=== PATIENT | male | born 2000 | race African-American/Black ===

== ENCOUNTER 2025-06-10 22:28 | Observation (INO) ==
[2025-06-10] MEDS: HYDROmorphone INJ 1 MG/ML SYRINGE IV STA (23:10)
[2025-06-10] MEDS: ONDANSETRON INJ 2 MG/ML 2 ML VIAL IV STA (23:10)
[2025-06-10 23:16] LABS: Hematocrit (blood only) 38.7 % (42.0-52.0); Hemoglobin 13.0 g/dL (14.0-18.0); Immature Granulocytes # (auto) 0.01 K/uL (0.01-0.20); Immature Granulocytes % (auto) 0.2 %; Mean Corpuscular Hemoglobin 31.0 pg (25.0-34.0); Mean Corpuscular Volume 92.4 fL (80.0-100.0); Platelet Count 199 K/uL (130-400); RDW Standard Deviation 39.8 fL (36.4-46.3); Red Blood Count 4.19 M/uL (4.70-6.10); White Blood Count 6.55 K/ul (4.8-10.8)
[2025-06-10 23:24] LABS: Alanine Aminotransferase 37.0 U/L (7-52); Albumin Globulin Ratio 1.0 (0.9-2); Albumin Level 3.8 gm/dl (3.4-5.0); Alkaline Phosphatase 78.0 U/L (34-104); Anion Gap 6.0 (3-11); Bilirubin,Total 0.5 mg/dl (0.2-1.0); Blood Urea Nitrogen 16.0 mg/dl (6-23); Calcium 9.0 mg/dl (8.6-10.3); Carbon Dioxide 28.0 mmol/L (21-32); Chloride 102.0 mmol/L (98-107); Creatinine Clr Calc Pharmacy 119.0 ml/min; Globulin 4.0 gm/dl (2.5-4.0); Glucose 134.0 mg/dl (70-99(Fasting)); Lipase 39.0 U/L (11-82); Potassium 3.7 mmol/L (3.5-5.1); Sodium 136.0 mmol/L (136-145); Total Protein 7.8 gm/dl (6.0-8.3)
[2025-06-10] MEDS: OPTIRAY 320 125ml IV ONE (23:45)
[2025-06-11] MEDS: HYDROmorphone INJ 1 MG/ML SYRINGE IV STA (00:07)
--- NOTE | 2025-06-11 01:45 | CT Scan Report ---
Exam(s): CTA CHEST IV Amt: 118 ml optiray 320 EXAM: CT Angiography Chest With Intravenous Contrast CLINICAL HISTORY: Reason for exam: compare to PE study yesterday. OTHER: Other Notes: worsening chest pain at right side and sob getting worse, compare to PE study yesterday, TECHNIQUE: Axial computed tomographic angiography images of the chest with intravenous contrast. CTDI is 23.34 mGy and DLP is 782.97 mGy-cm. Automated exposure control was utilized for the study. A dose lowering technique was utilized adhering to the principles of ALARA. MIP reconstructed images were created and reviewed. COMPARISON: 06/09/2025 FINDINGS: Pulmonary arteries: The pulmonary arterial tree is well opacified with contrast. There are filling defects in the right liver lobe pulmonary artery segmental branches and a left lower lobe segmental branch consistent with pulmonary embolism. The clot burden is low. The distribution is unchanged. Aorta: The thoracic aorta is nondilated. There is no aneurysm or dissection. Lungs: Small areas of infiltrate or infarct in the right lower lobe as well as increased bibasilar subsegmental atelectasis or edema. No mass. Pleural space: Unremarkable. No significant effusion. No pneumothorax. Heart: Mild cardiomegaly. No pericardial effusion is seen. No evidence of RV dysfunction. Bones/joints: No acute fracture. No dislocation. Soft tissues: Unremarkable. Lymph nodes: Unremarkable. No enlarged lymph nodes. IMPRESSION: 1. The pulmonary arterial tree is well opacified with contrast. There are filling defects in the right liver lobe pulmonary artery segmental branches and a left lower lobe segmental branch consistent with pulmonary embolism. The clot burden is low. The distribution is unchanged. The RV/LV ratio is normal measuring 0.6. 2. Small areas of infiltrate or infarct in the right lower lobe as well as increased bibasilar subsegmental atelectasis or edema. 3. Mild cardiomegaly. No pericardial effusion is seen. 4. The thoracic aorta is nondilated. There is no aneurysm or dissection. Communications: Call Doctor Pulmonary Embolism Electronically signed by: Bg Bird MD 06/11/25 01:44 AM
--- NOTE | 2025-06-11 01:49 | Emergency Department Note ---
Impression & Plan Pulmonary embolism, Chest pain admit to the [facility] ED Provider Note NAME: ADE ANDREA AGE: 24 SEX: Male INFORMANT: Patient ED PROVIDER(S): Katey Davis DO CHIEF COMPLAINT: increased chest pain PLAN: Disposition: admit to the [facility] MEDICAL DECISION MAKING: This is a 24-year-old male patient who was diagnosed with pulmonary emboli yesterday and started on Eliquis who presents to the emergency department complaining of increased chest discomfort and shortness of breath. on presentation, patient was hypertensive and slightly tachypneic. O2 saturations were stable at 94% on room air. Laboratory studies revealed no leukocytosis. Hemoglobin remained the same at 13. Glucose and renal function were normal. Troponin was negative. Patient was medicated with IV Dilaudid and IV Zofran which gave him fair relief of his chest discomfort. Patient had repeat CT scan of the chest which revealed similar clot burden compared to yesterday and still no evidence of right heart strain. Patient noted increasing shortness of breath with any type of movement or laying flat. He has had 2 doses of Eliquis since yesterday. The decision was made to heparinize the patient. Coagulation studies were ordered and the patient was bolused with IV heparin and started on a heparin drip. Patient remained hemodynamically stable. [facility] Nursing notes: reviewed and agree With them. Vital Signs: reviewed and unremarkable Additional History obtained from: patient's friend who was at the bedside Prior/ Outside/ External records reviewed: I did review CT scan from yesterday's ER visit. Differential Diagnosis: Worsening pulmonary infarct, worsening clot burden, clot extension, anxiety Diagnostics, independently interpreted by me: ECG: Normal sinus rhythm at a rate of 74. There is no ST segment elevation or signs of ischemia. There is no ectopy. Cardiac Monitoring: Normal sinus rhythm at a rate of 63 Imaging studies: CT scan of the chest: PER iMBRO HPI: 24 year old Male arrives for evaluation of Chest pain shortness of breath. male patient who was diagnosed with pulmonary emboli yesterday and started on Eliquis who presents to the emergency department complaining of increased chest discomfort and shortness of breath. PAST MEDICAL HISTORY: See Below SOCIAL HISTORY: See Below, HOME MEDICATIONS: See list ALLERGIES: none VITALS: See Below PHYSICAL EXAMINATION: HEENT: Head - normocephalic and atraumatic. Pupils are equal, round, and reactive to light. Extraocular eye muscles are intact, and sclera are anicteric. Nose - moist nasal mucosa without discharge. Mouth - moist buccal mucosa. Oropharynx is nonerythematous and there is no tonsillar exudate or edema noted. Neck: Supple; no JVD Or cervical lymphadenopathy. Patient points to pain over the right trapezius and right supraspinatus muscles although I could not reproduce discomfort with palpation over these muscles and there was no significant muscle spasm or skin findings in this area. Heart: Regular rate and rhythm. There is a normal S1 and S2 with no murmurs, clicks, or gallops appreciated. Lungs: Clear to auscultation bilaterally with no wheezes, rales, or rhonchi. Abdomen: Soft, completely nontender, nondistended, with good bowel sounds. There are no palpable pulsatile masses or hepatosplenomegaly. There is no guarding, rigidity, or rebound noted. Extremities: No evidence of cyanosis, clubbing, or edema. There are easily palpable peripheral pulses. Skin: warm and dry with good turgor and no rashes. Emergency Department treatment: puller machine, IV Zofran, IV Dilaudid, IV heparin bolus, IV heparin drip Emergency department course: The patient was evaluated in room A-11-A. A complete history and physical was performed. IV lock was initiated and labs were drawn as above. Previous electronic medical records were reviewed. Portable chest x-ray was performed. Patient was medicated with IV Zofran and IV Dilaudid for the discomfort. Order was placed for continuous cardiac monitoring. The patient was in a normal sinus rhythm at a rate of 63. Twelve- lead EKG was obtained as described above. Patient went for CT scan of the chest to further characterize clot burden. Patient remains hemodynamically stable. I reviewed findings with the patient and his friend. Coagulation studies were obtained. Patient was bolused with IV heparin and started on a heparin drip. Past Med/Surg History Problem List (Updated 06/11/25 @ 23:18 by Katey Davis DO) Pulmonary embolism (Acute) 06/09/2025 Shoulder pain Orthopnea Chest pain (Acute) Surgical History (Updated 06/11/25 @ 02:37 by Roxane Bird DO) No significant past surgical history Family History (Updated 06/11/25 @ 02:38 by Roxane Bird DO) Other No significant family history Social History (Updated 06/11/25 @ 02:38 by Roxane Bird DO) Smoking Status: Never smoker Second Hand Exposure: No; Do You Dip or Chew Tobacco: No; Hx Alcohol Use: Yes Alcohol type: beer Alcohol Intake Frequency Comment: social Hx Substance Use: Yes Last Used Substance: Unknown Preferred Language: Romanian Communication Ability: Effective Assistant Inventory Manager Required: No Beliefs That Will Affect Care: None Current Living Situation: Alone Feels Safe at Home: Yes Assistive Devices: None Allergies Allergies Allergy/AdvReac Type Severity Reaction Status Date / Time No Known Allergies Allergy Verified 06/09/25 14:11 Home Meds Home Medications Medication Instructions Recorded Confirmed fluoxetine 40 mg capsule 40 mg PO QAM 06/09/25 06/10/25 Previous Rx's Medication Instructions Recorded apixaban 5 mg tablet (Eliquis) 5 mg PO BID #74 tabs 06/11/25 tramadol 37.5 mg-acetaminophen 325 1 tab PO Q12H PRN pain #6 tabs 06/11/25 mg tablet Results & Data (ED) Vital Signs Vital Signs - 24 hr 06/10/25 23:12 06/10/25 23:21 06/10/25 23:30 Pulse Rate 75 75 72 Pulse Rate from SpO2 Sensor 75 75 72 Respiratory Rate 19 35 H 25 H Respiratory Effort / Characteristics Respiratory Depth Blood Pressure Blood Pressure Mean Pulse Oximetry 96 94 94 06/10/25 23:36 06/10/25 23:50 06/10/25 23:50 Pulse Rate 71 Pulse Rate from SpO2 Sensor 70 Respiratory Rate 27 H Respiratory Effort / Characteristics Respiratory Depth Blood Pressure 119/83 119/83 Blood Pressure Mean 111 111 Pulse Oximetry 94 06/10/25 23:50 06/10/25 23:50 06/10/25 23:51 Pulse Rate 65 Pulse Rate from SpO2 Sensor 65 Respiratory Rate 18 Respiratory Effort / Characteristics Respiratory Depth Blood Pressure 119/83 119/83 Blood Pressure Mean 111 111 Pulse Oximetry 96 06/11/25 00:00 06/11/25 00:12 06/11/25 00:21 Pulse Rate 66 73 69 Pulse Rate from SpO2 Sensor 67 72 Respiratory Rate 25 H 22 17 Respiratory Effort / Characteristics Respiratory Depth Blood Pressure Blood Pressure Mean Pulse Oximetry 95 94 06/11/25 00:30 06/11/25 00:42 06/11/25 00:51 Pulse Rate 62 77 68 Pulse Rate from SpO2 Sensor 63 76 69 Respiratory Rate 22 22 23 Respiratory Effort / Characteristics Respiratory Depth Blood Pressure Blood Pressure Mean Pulse Oximetry 95 94 94 06/11/25 01:00 06/11/25 01:00 06/11/25 01:06 Pulse Rate 63 64 Pulse Rate from SpO2 Sensor 62 66 Respiratory Rate 21 19 Respiratory Effort / Characteristics Non-Labored Respiratory Depth Normal Blood Pressure 150/73 H Blood Pressure Mean 98 Pulse Oximetry 94 94 06/11/25 01:08 06/11/25 01:08 06/11/25 01:08 Pulse Rate Pulse Rate from SpO2 Sensor Respiratory Rate Respiratory Effort / Characteristics Respiratory Depth Blood Pressure 150/73 H 150/73 H 150/73 H Blood Pressure Mean 82 82 82 Pulse Oximetry 06/11/25 01:08 06/11/25 01:08 06/11/25 01:12 Pulse Rate 68 Pulse Rate from SpO2 Sensor 69 Respiratory Rate 19 Respiratory Effort / Characteristics Respiratory Depth Blood Pressure 150/73 H 150/73 H Blood Pressure Mean 82 82 Pulse Oximetry 92 06/11/25 01:21 06/11/25 01:30 06/11/25 01:42 Pulse Rate 67 69 68 Pulse Rate from SpO2 Sensor 66 69 67 Respiratory Rate 16 22 20 Respiratory Effort / Characteristics Respiratory Depth Blood Pressure Blood Pressure Mean Pulse Oximetry 94 95 95 06/11/25 01:51 06/11/25 02:00 06/11/25 02:00 Pulse Rate 62 63 Pulse Rate from SpO2 Sensor 61 64 Respiratory Rate 21 22 Respiratory Effort / Characteristics Respiratory Depth Blood Pressure 155/87 H Blood Pressure Mean 92 Pulse Oximetry 94 94 06/11/25 02:00 06/11/25 02:00 06/11/25 02:00 Pulse Rate Pulse Rate from SpO2 Sensor Respiratory Rate Respiratory Effort / Characteristics Respiratory Depth Blood Pressure 155/87 H 155/87 H 155/87 H Blood Pressure Mean 92 92 92 Pulse Oximetry 06/11/25 02:00 06/11/25 02:00 06/11/25 02:00 Pulse Rate 68 Pulse Rate from SpO2 Sensor Respiratory Rate 18 Respiratory Effort / Characteristics Respiratory Depth Blood Pressure 155/87 H 155/87 H 155/87 H Blood Pressure Mean 92 92 92 Pulse Oximetry 94 06/11/25 02:00 06/11/25 02:00 06/11/25 02:12 Pulse Rate 79 Pulse Rate from SpO2 Sensor 79 Respiratory Rate 15 Respiratory Effort / Characteristics Respiratory Depth Blood Pressure 155/87 H 155/87 H Blood Pressure Mean 92 92 Pulse Oximetry 93 06/11/25 02:21 Pulse Rate 66 Pulse Rate from SpO2 Sensor 65 Respiratory Rate 22 Respiratory Effort / Characteristics Respiratory Depth Blood Pressure Blood Pressure Mean Pulse Oximetry 96 Laboratory Data 06/10/25 22:50 06/11/25 08:08 Lab Results 06/10/25 06/11/25 Range/Units 22:50 02:08 WBC 6.55 (4.8-10.8) K/ul RBC 4.19 L (4.70-6.10) M/uL Hgb 13.0 L (14.0-18.0) g/dL Hct 38.7 L (42.0-52.0) % MCV 92.4 (80.0-100.0) fL MCH 31.0 (25.0-34.0) pg MCHC 33.6 (32.0-36.0) g/dL RDW Std Deviation 39.8 (36.4-46.3) fL RDW Coeff of Ron 11.8 (11.5-14.5) % Plt Count 199 (130-400) K/uL MPV 9.7 (9.4-12.4) fL Immature Gran % (Auto) 0.2 % Neut % (Auto) 62.9 % Lymph % (Auto) 29.3 % [place] % (Auto) 7.0 % Eos % (Auto) 0.3 % Baso % (Auto) 0.3 % Neut # (Auto) 4.12 (1.40-6.50) K/uL Lymph # (Auto) 1.92 (1.20-3.40) K/uL [place] # (Auto) 0.46 (0.11-0.59) K/uL Eos # (Auto) 0.02 (0.00-0.50) K/uL Baso # (Auto) 0.02 (0.00-0.20) K/uL Immature Gran # (Auto) 0.01 (0.01-0.20) K/uL PT 11.1 (9.0-12.0) Seconds INR 1.1 (0.9-1.1) APTT 29 (21-31) Seconds PTT Ratio 1.1 Sodium 136 (136-145) mmol/L Potassium 3.7 (3.5-5.1) mmol/L Chloride 102 (98-107) mmol/L Carbon Dioxide 28 (21-32) mmol/L Anion Gap 6 (3-11) BUN 16 (6-23) mg/dl Creatinine 1.10 (0.6-1.4) mg/dl Est Cr Clr Drug Dosing 119.0 ml/min eGFR 97.34 BUN/Creatinine Ratio 14.5 (10-20) Glucose 134 H (70-99(Fasting)) mg/dl Calcium 9.0 (8.6-10.3) mg/dl Total Bilirubin 0.5 (0.2-1.0) mg/dl AST 24 (13-39) U/L ALT 37 (7-52) U/L Alkaline Phosphatase 78 (34-104) U/L Troponin I High Sens 5.8 (0-20) pg/ml Total Protein 7.8 (6.0-8.3) gm/dl Albumin 3.8 (3.4-5.0) gm/dl Globulin 4.0 (2.5-4.0) gm/dl Albumin/Globulin Ratio 1.0 (0.9-2) Lipase 39 (11-82) U/L Administered Medications Discontinued Medications Acetaminophen (Acetaminophen 325 Mg Tab) 650 mg PO Q4H PRN PRN Reason: Pain or Fever Stop: 07/11/25 04:15 Last Admin: 06/11/25 07:03 Dose: 650 mg Documented By: LUIS ALBERTO Apixaban (Apixaban 5 Mg Tablet) 10 mg PO BID [facility] Stop: 06/17/25 21:01 Last Admin: 06/11/25 10:01 Dose: 10 mg Documented By: LUIS ALBERTO Fluoxetine HCl (Fluoxetine Hcl 20 Mg Cap) 40 mg PO QAM [facility] Stop: 07/11/25 08:59 Last Admin: 06/11/25 08:09 Dose: 40 mg Documented By: LUIS ALBERTO Heparin Sodium (Porcine) (Heparin Sod (Porcine) 1000 Unit/Ml) 1 units IV NOW ONE Stop: 06/11/25 02:16 Last Admin: 06/11/25 02:17 Dose: 7,000 units Documented By: FREEDOM Co-signed By: MARY JO Heparin Sodium/Dextrose (Heparin Iv Adult Wt-Based Standard W/ Initial Bolus Protocol) 1 each IV NOW STA; Protocol Stop: 06/11/25 02:00 Last Admin: 06/11/25 02:18 Dose: Not Given Documented By: FREEDOM Hydromorphone HCl (Hydromorphone Inj 1 Mg/Ml Syringe) 1 mg IV NOW STA Stop: 06/10/25 23:03 Last Admin: 06/10/25 23:10 Dose: 1 mg Documented By: FREEDOM Hydromorphone HCl (Hydromorphone Inj 1 Mg/Ml Syringe) 1 mg IV NOW STA Stop: 06/10/25 23:59 Last Admin: 06/11/25 00:07 Dose: 1 mg Documented By: FREEDOM Heparin Sodium/Dextrose (Heparin 68074 Unit/500 Ml D5w) 25,000 units in 500 mls @ 28 mls/hr IV .[id number] FEMI; Protocol Stop: 07/11/25 02:14 Last Titration: 06/11/25 09:29 Dose: Infused Documented By: BETITO Co-signed By: LUIS ALBERTO Titration: 06/11/25 08:50 Dose: 1,400 units/hr, 28 mls/hr Documented By: LUIS ALBERTO Co-signed By: gio Admin: 06/11/25 02:17 Dose: 1,500 units/hr, 30 mls/hr Documented By: FREEDOM Co-signed By: MARY JO Ioversol (Optiray 320 125ml) 125 ml IV ONCE ONE Stop: 06/10/25 23:45 Last Admin: 06/10/25 23:45 Dose: 118 ml Documented By: ALEX Lidocaine (Lidocaine 5% 1 Patch) 1 patch TD NOW STA Stop: 06/11/25 04:17 Last Admin: 06/11/25 05:08 Dose: 1 patch Documented By: MINGO Miscellaneous (Remove Lidoderm Patch) 1 each N/A DAILY@1700 [facility] Stop: 06/11/25 17:01 Last Admin: 06/11/25 16:42 Dose: 1 each Documented By: LUIS ALBERTO Ondansetron HCl (Ondansetron Inj 2 Mg/Ml 2 Ml Vial) 4 mg IV NOW STA Stop: 06/10/25 23:03 Last Admin: 06/10/25 23:10 Dose: 4 mg Documented By: FREEDOM Imaging Data Radiologist's Impression: Chest CTA 06/10/25 23:02 CR Exam(s): CTA CHEST IV Amt: 118 ml optiray 320 EXAM: CT Angiography Chest With Intravenous Contrast CLINICAL HISTORY: Reason for exam: compare to PE study yesterday. OTHER: Other Notes: worsening chest pain at right side and sob getting worse, compare to PE study yesterday, TECHNIQUE: Axial computed tomographic angiography images of the chest with intravenous contrast. CTDI is 23.34 mGy and DLP is 782.97 mGy-cm. Automated exposure control was utilized for the study. A dose lowering technique was utilized adhering to the principles of ALARA. MIP reconstructed images were created and reviewed. COMPARISON: 06/09/2025 FINDINGS: Pulmonary arteries: The pulmonary arterial tree is well opacified with contrast. There are filling defects in the right liver lobe pulmonary artery segmental branches and a left lower lobe segmental branch consistent with pulmonary embolism. The clot burden is low. The distribution is unchanged. Aorta: The thoracic aorta is nondilated. There is no aneurysm or dissection. Lungs: Small areas of infiltrate or infarct in the right lower lobe as well as increased bibasilar subsegmental atelectasis or edema. No mass. Pleural space: Unremarkable. No significant effusion. No pneumothorax. Heart: Mild cardiomegaly. No pericardial effusion is seen. No evidence of RV dysfunction. Bones/joints: No acute fracture. No dislocation. Soft tissues: Unremarkable. Lymph nodes: Unremarkable. No enlarged lymph nodes. IMPRESSION: 1. The pulmonary arterial tree is well opacified with contrast. There are filling defects in the right liver lobe pulmonary artery segmental branches and a left lower lobe segmental branch consistent with pulmonary embolism. The clot burden is low. The distribution is unchanged. The RV/LV ratio is normal measuring 0.6. 2. Small areas of infiltrate or infarct in the right lower lobe as well as increased bibasilar subsegmental atelectasis or edema. 3. Mild cardiomegaly. No pericardial effusion is seen. 4. The thoracic aorta is nondilated. There is no aneurysm or dissection. Communications: Call Doctor Pulmonary Embolism Electronically signed by: Bg Bird MD 06/11/25 01:44 AM Discharge Plan Visit Data Chief Complaint: Chest Pain Stated Complaint: CHEST PAIN, HERE YESTERDAY ED Provider: Katey Davis Discharge Problem: Pulmonary embolism, Chest pain Patient Disposition: Admitted As Inpatient Condition: Serious Discharge Instructions Interventions: ED Discharge Assessment Last Done: 06/11/25 03:49
--- NOTE | 2025-06-11 02:07 | XRay Report ---
Exam(s): XR CXR 1 VIEW EXAM: XR Chest, 1 View CLINICAL HISTORY: Reason for exam: Chest pain, nonspecific. TECHNIQUE: Frontal view of the chest. COMPARISON: Prior CT scan of the chest from June 09, 2025. FINDINGS: Lungs: Mild to moderate peribronchial thickening of the central and lower lobe bronchi. Interstitial opacities in the lower lobes. Pulmonary vascular congestion. No consolidation. Pleural space: Unremarkable. No pneumothorax. Heart: Moderate cardiomegaly. Mediastinum: Unremarkable. Normal mediastinal contour. Bones/joints: Unremarkable. No acute fracture. IMPRESSION: Increased interstitial opacities in the lower lobes, which may represent the sequelae of recently diagnosed pulmonary emboli. Cardiomegaly with pulmonary vascular congestion. Electronically signed by: Marjorie Waller MD 06/11/25 02:06 AM
[2025-06-11] MEDS: HEPARIN SOD (PORCINE) 1000 UNIT/ML IV ONE (02:17)
[2025-06-11] MEDS: HEPARIN 25000 UNIT/500 ML D5W 25,000 UNITS/500 ML BAG IV SCH (02:17)
[2025-06-11] MEDS: Heparin IV Adult Wt-Based Standard w/ INITIAL Bolus Protocol IV STA (02:18)
--- NOTE | 2025-06-11 02:26 | History & Physical Report ---
Date of Service June 11, 2025 Assessment & Plan (1) Pulmonary embolism: (2) Chest pain: (3) Orthopnea: Plan 24yo male with no significant past medical or surgical history presenting with worsening pleuritic chest pain, SOB and orthopnea. Patient was diagnosed with an unprovoked PE in the ER yesterday and was started on Eliquis anticoagulation. He has been compliant with his medications. Imaging today with no increase in clot burden. No evidence of right heart strain. Possible interval increase in pulmonary infarction. #Chest pain / Pulmonary embolism / Orthopnea - patient hemodynamically stable, adequate oxygenation on room air. CT imaging as above with no increase in clot burden, no right heart strain. Possible increase in pulmonary infarction which likely represents normal progression of patient's condition. -Admit to medical with telemetry -Check 2D echo - patient complaining of orthopnea -Followup hypercoag workup sent in from the ER on 06/09/25 -Heparin gtt has been started in the ER - will continue for now. Patient should be discharged on Eliquis -Tylenol PRN pain -Lidoderm PRN pain History of Present Illness Chief Complaint: chest pain, SOB, orthopnea Primary Care Provider: [facility] Luis Daniel Schwarz is a pleasant 24 yo male with no significant past medical or surgical history presenting with SOB, pleuritic chest pain and orthopnea. Patient had been in his usual state of health until 06/07/25 when he developed right sided pleuritic chest pain, SOB and hemoptysis. He was found to have pulmonary emboli in the lower lobes involving segmental and subsegmental arteries of the medial right lower lobes and a few small subsegmental emboli in the left lower lobe. Patchy consolidation in the peripheral right lower lobe favors infarction over infection. Patient remained hemodynamically stable and was discharged home on Eliquis 5mg po BID. He has been compliant with his prescription. Denies bleeding. He returns today with worsening right sided pleuritic chest pain. Pain is located right anterior chest into the neck, worse with coughing or deep breathing. Also with SOB and orthopnea. He denies pain, swelling or redness in the legs. No palpitations. No fever, chills, nausea, vomiting or diarrhea. Patient denies personal or family history of blood clots. He traveled to [place], otherwise no extended travel. No trauma. He is active, no issues with exertion. In the ER patient is hypertensive at 155/87, normal HR and adequate oxygenation on room air ER Course: Heparin gtt Allergies Allergy/AdvReac Type Severity Reaction Status Date / Time No Known Allergies Allergy Verified 06/09/25 14:11 Home Medications Medication Instructions Recorded Confirmed Type apixaban 5 mg tablet (Eliquis) 5 mg PO BID #74 tabs 06/09/25 06/10/25 Rx fluoxetine 40 mg capsule 40 mg PO QAM 06/09/25 06/10/25 History Past Med/Surg History Problem List (Updated 06/11/25 @ 02:41 by Roxane Bird DO) Orthopnea Chest pain (Acute) Medical History (Updated 06/11/25 @ 02:41 by Roxane Bird DO) Pulmonary embolism 06/09/2025 Surgical History (Updated 06/11/25 @ 02:37 by Roxane Bird DO) No significant past surgical history Family History (Updated 06/11/25 @ 02:38 by Roxane Bird DO) Other No significant family history Social History (Updated 06/11/25 @ 02:38 by Roxane Bird DO) Smoking Status: Never smoker Hx Alcohol Use: Yes Alcohol Intake Frequency Comment: social Hx Substance Use: No Preferred Language: Lao Feels Safe at Home: Yes Review of Systems Review of Systems: All systems reviewed & are unremarkable except as noted in HPI & below Physical Exam Physical Exam: General: patient resting comfortably, NAD, non-toxic in appearance, AA&O x 4 Skin: warm, dry, intact, no rashes or lesions HEENT: NC/AT, PERRL, EOMI, anicteric sclera, conjunctiva without injection, external ear normal to inspection and nontender, nares patent, moist mucus membranes, dentition intact, no oropharyngeal lesions, neck supple, trachea midline, no LAD, no thyromegaly, no JVD Heart: +S1/S2, regular, no m/r/g Lungs: equal air entry bilaterally, no rales/rhonchi/wheezes Abd: +BS, soft, NT/ND, no masses/organomegaly/ascites Ext: warm, 2+ pulses in UE/LE bilaterally, no clubbing/cyanosis or edema Neuro: nonfocal, patient AA&O x 4, speech intact, no facial droop, moving all extremities on command with equal strength 5/5 Results & Data Results & Data Vital Signs (Past 12 Hours) Vital Signs Temp Pulse Resp BP Pulse Ox O2 Del Method 06/11/25 02:21 66 22 96 06/11/25 02:12 79 15 93 06/11/25 02:00 155/87 H 06/11/25 02:00 155/87 H 06/11/25 02:00 155/87 H 06/11/25 02:00 155/87 H 06/11/25 02:00 68 18 155/87 H 94 06/11/25 02:00 155/87 H 06/11/25 02:00 155/87 H 06/11/25 02:00 155/87 H 06/11/25 02:00 155/87 H 06/11/25 02:00 63 22 94 06/11/25 01:51 62 21 94 06/11/25 01:42 68 20 95 06/11/25 01:30 69 22 95 06/11/25 01:21 67 16 94 06/11/25 01:12 68 19 92 06/11/25 01:08 150/73 H 06/11/25 01:08 150/73 H 06/11/25 01:08 150/73 H 06/11/25 01:08 150/73 H 06/11/25 01:08 150/73 H 06/11/25 01:06 64 19 94 06/11/25 01:00 63 21 150/73 H 94 06/11/25 00:51 68 23 94 06/11/25 00:42 77 22 94 06/11/25 00:30 62 22 95 06/11/25 00:21 69 17 06/11/25 00:12 73 22 94 06/11/25 00:00 66 25 H 95 06/10/25 23:51 65 18 96 06/10/25 23:50 119/83 06/10/25 23:50 119/83 06/10/25 23:50 119/83 06/10/25 23:50 119/83 06/10/25 23:36 71 27 H 94 06/10/25 23:30 72 25 H 94 06/10/25 23:21 75 35 H 94 06/10/25 23:12 75 19 96 06/10/25 23:02 Room Air 06/10/25 23:02 Room Air 06/10/25 23:00 72 29 H 96 06/10/25 22:51 74 28 H 96 06/10/25 22:42 78 19 95 06/10/25 22:39 78 26 H 97 06/10/25 22:37 165/91 H 06/10/25 22:37 165/91 H 06/10/25 22:37 165/91 H 06/10/25 22:37 165/91 H 06/10/25 22:37 165/91 H 06/10/25 22:29 37.2 C 79 20 158/96 H 96 Room Air Laboratory Results Laboratory Results WBC 6.55 K/ul (4.8-10.8) 06/10/25 22:50 RBC 4.19 M/uL (4.70-6.10) L 06/10/25 22:50 Hgb 13.0 g/dL (14.0-18.0) L 06/10/25 22:50 Hct 38.7 % (42.0-52.0) L 06/10/25 22:50 MCV 92.4 fL (80.0-100.0) 06/10/25 22:50 MCH 31.0 pg (25.0-34.0) 06/10/25 22:50 MCHC 33.6 g/dL (32.0-36.0) 06/10/25 22:50 RDW Std Deviation 39.8 fL (36.4-46.3) 06/10/25 22:50 RDW Coeff of Ron 11.8 % (11.5-14.5) 06/10/25 22:50 Plt Count 199 K/uL (130-400) 06/10/25 22:50 MPV 9.7 fL (9.4-12.4) 06/10/25 22:50 Immature Gran % (Auto) 0.2 % 06/10/25 22:50 Neut % (Auto) 62.9 % 06/10/25 22:50 Lymph % (Auto) 29.3 % 06/10/25 22:50 Hughes % (Auto) 7.0 % 06/10/25 22:50 Eos % (Auto) 0.3 % 06/10/25 22:50 Baso % (Auto) 0.3 % 06/10/25 22:50 Neut # (Auto) 4.12 K/uL (1.40-6.50) 06/10/25 22:50 Lymph # (Auto) 1.92 K/uL (1.20-3.40) 06/10/25 22:50 Hughes # (Auto) 0.46 K/uL (0.11-0.59) 06/10/25 22:50 Eos # (Auto) 0.02 K/uL (0.00-0.50) 06/10/25 22:50 Baso # (Auto) 0.02 K/uL (0.00-0.20) 06/10/25 22:50 Immature Gran # (Auto) 0.01 K/uL (0.01-0.20) 06/10/25 22:50 Sodium 136 mmol/L (136-145) 06/10/25 22:50 Potassium 3.7 mmol/L (3.5-5.1) 06/10/25 22:50 Chloride 102 mmol/L (98-107) 06/10/25 22:50 Carbon Dioxide 28 mmol/L (21-32) 06/10/25 22:50 Anion Gap 6 (3-11) 06/10/25 22:50 BUN 16 mg/dl (6-23) 06/10/25 22:50 Creatinine 1.10 mg/dl (0.6-1.4) 06/10/25 22:50 Est Cr Clr Drug Dosing 119.0 ml/min 06/10/25 22:50 eGFR 97.34 06/10/25 22:50 BUN/Creatinine Ratio 14.5 (10-20) 06/10/25 22:50 Glucose 134 mg/dl (70-99(Fasting)) H 06/10/25 22:50 Calcium 9.0 mg/dl (8.6-10.3) 06/10/25 22:50 Total Bilirubin 0.5 mg/dl (0.2-1.0) 06/10/25 22:50 AST 24 U/L (13-39) 06/10/25 22:50 ALT 37 U/L (7-52) 06/10/25 22:50 Alkaline Phosphatase 78 U/L (34-104) 06/10/25 22:50 Troponin I High Sens 5.8 pg/ml (0-20) 06/10/25 22:50 Total Protein 7.8 gm/dl (6.0-8.3) 06/10/25 22:50 Albumin 3.8 gm/dl (3.4-5.0) 06/10/25 22:50 Globulin 4.0 gm/dl (2.5-4.0) 06/10/25 22:50 Albumin/Globulin Ratio 1.0 (0.9-2) 06/10/25 22:50 Lipase 39 U/L (11-82) 06/10/25 22:50 Impressions Chest CTA 06/10/25 23:02 CR Exam(s): CTA CHEST IV Amt: 118 ml optiray 320 EXAM: CT Angiography Chest With Intravenous Contrast CLINICAL HISTORY: Reason for exam: compare to PE study yesterday. OTHER: Other Notes: worsening chest pain at right side and sob getting worse, compare to PE study yesterday, TECHNIQUE: Axial computed tomographic angiography images of the chest with intravenous contrast. CTDI is 23.34 mGy and DLP is 782.97 mGy-cm. Automated exposure control was utilized for the study. A dose lowering technique was utilized adhering to the principles of ALARA. MIP reconstructed images were created and reviewed. COMPARISON: 06/09/2025 FINDINGS: Pulmonary arteries: The pulmonary arterial tree is well opacified with contrast. There are filling defects in the right liver lobe pulmonary artery segmental branches and a left lower lobe segmental branch consistent with pulmonary embolism. The clot burden is low. The distribution is unchanged. Aorta: The thoracic aorta is nondilated. There is no aneurysm or dissection. Lungs: Small areas of infiltrate or infarct in the right lower lobe as well as increased bibasilar subsegmental atelectasis or edema. No mass. Pleural space: Unremarkable. No significant effusion. No pneumothorax. Heart: Mild cardiomegaly. No pericardial effusion is seen. No evidence of RV dysfunction. Bones/joints: No acute fracture. No dislocation. Soft tissues: Unremarkable. Lymph nodes: Unremarkable. No enlarged lymph nodes. IMPRESSION: 1. The pulmonary arterial tree is well opacified with contrast. There are filling defects in the right liver lobe pulmonary artery segmental branches and a left lower lobe segmental branch consistent with pulmonary embolism. The clot burden is low. The distribution is unchanged. The RV/LV ratio is normal measuring 0.6. 2. Small areas of infiltrate or infarct in the right lower lobe as well as increased bibasilar subsegmental atelectasis or edema. 3. Mild cardiomegaly. No pericardial effusion is seen. 4. The thoracic aorta is nondilated. There is no aneurysm or dissection. Communications: Call Doctor Pulmonary Embolism Electronically signed by: Bg Bird MD 06/11/25 01:44 AM Chest X-Ray 06/10/25 23:02 Exam(s): XR CXR 1 VIEW EXAM: XR Chest, 1 View CLINICAL HISTORY: Reason for exam: Chest pain, nonspecific. TECHNIQUE: Frontal view of the chest. COMPARISON: Prior CT scan of the chest from June 09, 2025. FINDINGS: Lungs: Mild to moderate peribronchial thickening of the central and lower lobe bronchi. Interstitial opacities in the lower lobes. Pulmonary vascular congestion. No consolidation. Pleural space: Unremarkable. No pneumothorax. Heart: Moderate cardiomegaly. Mediastinum: Unremarkable. Normal mediastinal contour. Bones/joints: Unremarkable. No acute fracture. IMPRESSION: Increased interstitial opacities in the lower lobes, which may represent the sequelae of recently diagnosed pulmonary emboli. Cardiomegaly with pulmonary vascular congestion. Electronically signed by: Marjorie Waller MD 06/11/25 02:06 AM ECG Additional Comments: EKG with NSR at 74bpm, normal axis, IR=936, QRS=94, LPf=496, no acute ischemic changes PG Care Time/CCT Total # of Minutes Spent Total Time Spent with Patient: Total time spent is greater than 50% in coordination of care (as documented) at patient's floor/unit and/or counseling patient: Coding Level of Care Code 81836 INT INP/OBS CARE 3/75MIN Diagnoses Pulmonary embolism I26.99 Acute cor pulmonale presence: without acute cor pulmonale Chronicity: acute Pulmonary embolism type: unspecified Chest pain R07.9 Chest pain type: unspecified Orthopnea R06.01 (1) Pulmonary embolism Acute cor pulmonale presence: without acute cor pulmonale Chronicity: acute Pulmonary embolism type: unspecified Qualified Code(s): I26.99 - Other pulmonary embolism without acute cor pulmonale (2) Chest pain Chest pain type: unspecified Qualified Code(s): R07.9 - Chest pain, unspecified
[2025-06-11 02:56] LABS: INR 1.1 (0.9-1.1); Partial Thromboplastin Time 29 Seconds (21-31); Prothrombin Time 11.1 Seconds (9.0-12.0)
[2025-06-11] MEDS ORDERED: ONDANSETRON INJ 2 MG/ML 2 ML VIAL IV PRN (04:16)
[2025-06-11] MEDS ORDERED: MELATONIN 3 MG TAB PO PRN (04:16)
[2025-06-11] MEDS ORDERED: DOCUSATE SODIUM 100 MG CAP PO PRN (04:16)
[2025-06-11 05:02] VITALS: RESP 16
[2025-06-11] MEDS: LIDOCAINE 5% 1 PATCH TD STA (05:08)
[2025-06-11] MEDS: ACETAMINOPHEN 325 MG TAB PO PRN (07:03)
--- NOTE | 2025-06-11 08:37 | Hospitalist Progress Note ---
"Date of Service June 11, 2025 Assessment & Plan (1) Pulmonary embolism: (2) Chest pain: (3) Orthopnea: Plan 24 y/o male w/ no significant PMHx presenting with worsening pleuritic chest pain, SOB and orthopnea. Patient was diagnosed with an unprovoked PE in the ER 06/09 and was started on Eliquis anticoagulation and discharged home. Pt represented to ED on 06/10; Chest CTA w/ no evidence of increased clot burden or rt heart strain, possible interval increase in pulmonary infarction. #Pulmonary Embolism | Chest pain | Orthopnea - O2 Sat 94% RA 06/11; 06/[address] w/ no increase in clot burden, interval increase in pulm infarct likely normal dz progression; n -Awaiting Echo - pt w/ complaints of orthopnea -Followup hypercoag workup sent in from the ER on 06/09/25 -Heparin gtt has been started in the ER - will continue for now. Patient should be discharged on Eliquis -Tylenol PRN pain -Lidoderm PRN pain VTE Proph: Heparin Dispo: Med/Tele - awaiting echo Admission and Anticipated Discharge Date Admission Date: June 11, 2025 Review of Systems Review of Systems: All systems reviewed & are unremarkable except as noted in Subjective Physical Exam Physical Exam: General: Pt is a 24 y/o overweight M in NAD in bed. VS: reviewed, unremarkable Skin: Warm and dry; no lesions or ulcerations Respiratory: CTA bilat, no adventitious sounds noted. Chest expansion is full and symmetrical Cardio: RRR no murmurs Abdomen: Round, normoactive BS x4, nontender to palpation MSK: FROM of extremities, no deformities Extremities: no edema Neuro: A&Ox4, cooperative Results & Data Results & Data Vital Signs (Past 12 Hours) Vital Signs Temp Pulse Pulse Resp BP BP Pulse Ox 06/11/25 07:58 98.2 F 76 16 110/64 94 06/11/25 05:51 61 06/11/25 04:26 06/11/25 04:26 97.5 F L 54 L 16 97 06/11/25 04:00 53 L 06/11/25 03:49 68 18 150/80 H 95 06/11/25 02:21 66 22 96 06/11/25 02:12 79 15 93 06/11/25 02:00 155/87 H 06/11/25 02:00 155/87 H 06/11/25 02:00 155/87 H 06/11/25 02:00 155/87 H 06/11/25 02:00 68 18 155/87 H 94 06/11/25 02:00 155/87 H 06/11/25 02:00 155/87 H 06/11/25 02:00 155/87 H 06/11/25 02:00 155/87 H 06/11/25 02:00 63 22 94 06/11/25 01:51 62 21 94 06/11/25 01:42 68 20 95 06/11/25 01:30 69 22 95 06/11/25 01:21 67 16 94 06/11/25 01:12 68 19 92 06/11/25 01:08 150/73 H 06/11/25 01:08 150/73 H 06/11/25 01:08 150/73 H 06/11/25 01:08 150/73 H 06/11/25 01:08 150/73 H 06/11/25 01:06 64 19 94 06/11/25 01:00 63 21 150/73 H 94 06/11/25 00:51 68 23 94 06/11/25 00:42 77 22 94 06/11/25 00:30 62 22 95 06/11/25 00:21 69 17 06/11/25 00:12 73 22 94 06/11/25 00:00 66 25 H 95 06/10/25 23:51 65 18 96 06/10/25 23:50 119/83 06/10/25 23:50 119/83 06/10/25 23:50 119/83 06/10/25 23:50 119/83 06/10/25 23:36 71 27 H 94 06/10/25 23:30 72 25 H 94 06/10/25 23:21 75 35 H 94 06/10/25 23:12 75 19 96 06/10/25 23:02 06/10/25 23:02 06/10/25 23:00 72 29 H 96 06/10/25 22:51 74 28 H 96 06/10/25 22:42 78 19 95 06/10/25 22:39 78 26 H 97 06/10/25 22:37 165/91 H 06/10/25 22:37 165/91 H 06/10/25 22:37 165/91 H 06/10/25 22:37 165/91 H 06/10/25 22:37 165/91 H 06/10/25 22:29 99.0 F 79 20 158/96 H 96 O2 Del Method 06/11/25 07:58 Room Air 06/11/25 05:51 06/11/25 04:26 Room Air 06/11/25 04:26 Room Air 06/11/25 04:00 06/11/25 03:49 Room Air 06/11/25 02:21 06/11/25 02:12 06/11/25 02:00 06/11/25 02:00 06/11/25 02:00 06/11/25 02:00 06/11/25 02:00 06/11/25 02:00 06/11/25 02:00 06/11/25 02:00 06/11/25 02:00 06/11/25 02:00 06/11/25 01:51 06/11/25 01:42 06/11/25 01:30 06/11/25 01:21 06/11/25 01:12 06/11/25 01:08 06/11/25 01:08 06/11/25 01:08 06/11/25 01:08 06/11/25 01:08 06/11/25 01:06 06/11/25 01:00 06/11/25 00:51 06/11/25 00:42 06/11/25 00:30 06/11/25 00:21 06/11/25 00:12 06/11/25 00:00 06/10/25 23:51 06/10/25 23:50 06/10/25 23:50 06/10/25 23:50 06/10/25 23:50 06/10/25 23:36 06/10/25 23:30 06/10/25 23:21 06/10/25 23:12 06/10/25 23:02 Room Air 06/10/25 23:02 Room Air 06/10/25 23:00 06/10/25 22:51 06/10/25 22:42 06/10/25 22:39 06/10/25 22:37 06/10/25 22:37 06/10/25 22:37 06/10/25 22:37 06/10/25 22:37 06/10/25 22:29 Room Air Laboratory Results Reviewed: CBC, CMP, Coags Diagnostic Findings Reviewed: CXR, Chest CTA PG Care Time/CCT Total # of Minutes Spent Total Time Spent with Patient: Total time spent is greater than 50% in coordination of care (as documented) at patient's floor/unit and/or counseling patient: Coding Diagnoses Pulmonary embolism I26.99 Acute cor pulmonale presence: without acute cor pulmonale Chronicity: acute Pulmonary embolism type: unspecified Chest pain R07.9 Chest pain type: unspecified Orthopnea R06.01 (1) Pulmonary embolism Acute cor pulmonale presence: without acute cor pulmonale Chronicity: acute Pulmonary embolism type: unspecified Qualified Code(s): I26.99 - Other p ulmonary embolism without acute cor pulmonale (2) Chest pain Chest pain type: unspecified Qualified Code(s): R07.9 - Chest pain, unspecified"
[2025-06-11 08:47] LABS: ANTI-Xa, UFH(UnfractionatedHep 0.79 IU/ml (0.3-0.7)
--- NOTE | 2025-06-11 09:21 | XCELERA ---
[id number] [id number]
[2025-06-11] MEDS: APIXABAN 5 MG TABLET PO SCH (10:01)
--- NOTE | 2025-06-11 10:31 | Electrocardiogram Report ---
Test Reason : Blood Pressure : */* mmHG Vent. Rate : 74 BPM Atrial Rate : 74 BPM P-R Int : 164 ms QRS Dur : 94 ms QT Int : 408 ms P-R-T Axes : 61 86 31 degrees QTcB Int : 452 ms Normal sinus rhythm Nonspecific ST and T wave abnormality Abnormal ECG When compared with ECG of 09-Jun-2025 16:50, No significant change was found Confirmed by Diony Roberts ([id number]) on 06/11/2025 10:31:06 AM Referred By: REFERRED SELF Confirmed By: Diony Roberts
[2025-06-11 10:35] LABS: Anion Gap 5.0 (3-11); Blood Urea Nitrogen 12.0 mg/dl (6-23); Calcium 8.5 mg/dl (8.6-10.3); Carbon Dioxide 28.0 mmol/L (21-32); Chloride 102.0 mmol/L (98-107); Creatinine Clr Calc Pharmacy 131.3 ml/min; Glucose 94.0 mg/dl (70-99(Fasting)); Potassium 4.0 mmol/L (3.5-5.1); Sodium 135.0 mmol/L (136-145)
--- NOTE | 2025-06-11 14:20 | XRay Report ---
XR shoulder RT min 2V routine CLINICAL HISTORY: Rt shoulder pain COMPARISON: None FINDINGS: No fractures or dislocations are visualized. There are no erosive or destructive changes. Visualized portions of the right lung are clear. IMPRESSION: No fractures or dislocations identified. ACT 112: Negative or not required by law. Electronically signed by: Hernandez Alfredo M.D. 06/11/2025 2:19 PM
[2025-06-11 15:08] VITALS: BP 132/69; PULSE 61; TEMP 98.2; O2SAT 94
[2025-06-11] MEDS: REMOVE LIDODERM PATCH SCH (16:42)
--- NOTE | 2025-06-11 16:44 | Discharge Summary ---
"Discharge Summary Date of Service June 11, 2025 Principal Dx & Hospital Course #1 = Principal Diagnosis (1) Pulmonary embolism: (2) Chest pain: (3) Orthopnea: (4) Shoulder pain: Plan #Pulmonary Embolism | Chest pain | Orthopnea - 24 y/o male w/ no significant PMHx presenting with worsening pleuritic chest pain, SOB and orthopnea. Patient was diagnosed with an unprovoked PE in the ER 06/09 and was started on Eliquis anticoagulation and discharged home. Pt represented to ED on 06/10; Chest CTA w/ no evidence of increased clot burden or rt heart strain, possible interval increase in pulmonary infarction. Echocardiogram on 06/11 revealed WNL Lt ventricular function w/ no wall motion abnormalities and an EF of 60-65% w/ no significant valvular pathology. Pt should continue Eliquis at home w/ 10mg BID for 7 days and then transition to 5mg BID for a total of 90s days of therapy. Pt should schedule follow-up with S within one week of discharge. #Rt Shoulder pain - Pt noted he'd been experiencing R shoulder pain x4 days. Troponin in ED was negative. Pt was encouraged to purchase Lidocaine Patch OTC and given an Rx for 6 tabs of Tramadol d/t inability to take NSAIDs at home. Dispo: Home, Self-care Admission HPI Per Admitting Provider Luis Daniel Schwarz is a pleasant 24 yo male with no significant past medical or surgical history presenting with SOB, pleuritic chest pain and orthopnea. Patient had been in his usual state of health until 06/07/25 when he developed right sided pleuritic chest pain, SOB and hemoptysis. He was found to have pulmonary emboli in the lower lobes involving segmental and subsegmental arteries of the medial right lower lobes and a few small subsegmental emboli in the left lower lobe. Patchy consolidation in the peripheral right lower lobe favors infarction over infection. Patient remained hemodynamically stable and was discharged home on Eliquis 5mg po BID. He has been compliant with his prescription. Denies bleeding. He returns today with worsening right sided pleuritic chest pain. Pain is located right anterior chest into the neck, worse with coughing or deep breathing. Also with SOB and orthopnea. He denies pain, swelling or redness in the legs. No palpitations. No fever, chills, nausea, vomiting or diarrhea. Patient denies personal or family history of blood clots. He traveled to [place], otherwise no extended travel. No trauma. He is active, no issues with exertion. In the ER patient is hypertensive at 155/87, normal HR and adequate oxygenation on room air ER Course: Heparin gtt Discharge Exam General: Pt is a 24 y/o WD/WN M in NAD in bed. VS: reviewed, unremarkable Skin: Warm and dry; no lesions or ulcerations Respiratory: CTA bilat, no adventitious sounds noted. Chest expansion is full and symmetrical Cardio: RRR no murmurs Abdomen: Round, normoactive BS x4, nontender to palpation MSK: FROM of extremities, no deformities Extremities: no edema Neuro: A&Ox4, cooperative Discharge Plan Discharge Items Patient Disposition: Home - Self-Care Reason For Visit: CHEST PAIN, ORTHOPNEA, RECENT PE Discharge Diagnosis: Pulmonary Embolism Activity: Resume your previous activity Non-emergency contact: Primary Care Provider Call non-emergency contact if: you have any medication questions, your symptoms worsen and your pain is not controlled Follow-up/Referrals: [facility] [Primary Care Provider] - Diet: Regular Addtl Attending Provider Instructions: Hospital Course: You were admitted to the hospital for a Pulmonary Embolism w/ worsening chest pain and shortness of breath. You had been previously diagnosed with an unprovoked pulmonary embolism in the emergency room on 06/09 and discharged home on Eliquis. You represented to the ED on 06/10 where a chest CTA reconfirmed the presence of PE and regular progression of disease. You were then admitted to the hospital for further evaluation of care. While you were in the hospital, you were placed on a heparin drip before being transitioned back to Eliquis. A echocardiogram was preformed on 06/11 that was without abnormalities. You additionally noted that you were experiencing Rt shoulder pain during your admission, an Xray on 06/11 revealed no fractures, dislocations, or erosive changes. You may purchase lidocaine patches to place on your shoulder following discharge to help ease pain. Two medications will be sent to your pharmacy. It's important that you follow up with [facility] within one week of discharge for continuation of your medication. Discharge Instructions: -Please Contact [facility] to set up an appointment within one week of your hospital discharge -You should continue to take the Eliquis previously prescribed to you. You should take 10mg by mouth TWICE daily for the first SEVEN days and then transition to 5mg by mouth TWICE daily until a total treatment course of 90 days is completed - continuation of this treatment is reliant on PCP followup -AVOID NSAIDS while on Eliquis as it can increase your risk of bleeding: this includes medications such as Motrin/Ibuprofen, Aleve, and Aspirin -Lidocaine Patches 4% can be purchased at your local pharmacy to be placed on your R shoulder to ease pain -Tramadol was sent to your pharmacy to help with your shoulder pain. This medication can cause constipation, so its important to to stay hydrated. Medications: Your medication list has been reviewed and reconciled upon discharge to ensure accuracy and continuity of care. An updated list of all your medications is included with your hospital discharge paperwork. Please review this list closely, and make note of any changes. We sent a new medication called Tramadol to your pharmacy. Take two times a day for the next 3 days. Start this tonight. This is a medication to help with your pain . Take your medications as instructed; do not skip a dose of your medicines. Make sure all of your doctors know every medicine you are taking (including kuxx-nfz-vzdvkhd medicines, vitamins, and supplements). Call your primary care provider before taking any new medicines (including over- the-counter medicines, vitamins, and supplements), because some of these may interact with your current medications, or may make your symptoms worse. Tell your primary care provider if you cannot afford your medications. Activity: You can do normal everyday activities as your body allows. Take rest breaks if you feel tired. Do not overexert. Stop activity if you have pain, shortness of breath or feel dizzy. Follow-up appointments: Make an appointment with your primary care physician within one week of discharge. A copy of this summary will be sent to them. Every time you see your primary care physician, or any other doctor, bring your medication list, and a list of questions. CONTACT YOUR PRIMARY CARE PROVIDER if you experience any of the following: Shortness of breath or difficulty breathing Fevers or chills Feeling tired with normal activity or experiencing dizziness or fainting Difficulty following your treatment plan, or difficulty taking medications CALL 911 OR GO TO THE EMERGENCY DEPARTMENT if you experience any of the following: Severe abdominal pain or nausea/vomiting Severe chest pain, or chest pain that radiates (moves) to your jaw or arm Sudden, severe shortness of breath or difficulty breathing Thank you for allowing us to participate in your care. Pending Studies at Discharge: No Stand-Alone Forms: [facility], Work/School Release, Smoking Cessation Medications and DC Order Prescriptions: New tramadol-acetaminophen 37.5-325 mg tablet 1 tab PO Q12H PRN (Reason: pain) Qty: 6 0RF Continued fluoxetine 40 mg capsule 40 mg PO QAM Eliquis 5 mg tablet 5 mg PO BID Qty: 74 0RF Rx Instructions: 10 mg twice a day x7 days then 5 mg twice a day thereafter Discharge Orders: Discharge Order (Routine); Ordered 06/11/25 Ordered By: Pascale Solis Admission Data Admit Date/Time: 06/11/25 02:30 Attending Provider: Fortunato Zamora Admit Provider: Roxane Bird Primary Care Provider: [facility] Other Providers: Roxane Bird Hospital Stay Data Consultations 06/11/25 02:00 ED Decision to Admit Stat Diagnostic Imagining Performed 06/10/25 23:02 CT angio chest PE protocol Stat Discharge Instructions Given to Patient (Per Discharging Provider) Hospital Course: You were admitted to the hospital for a Pulmonary Embolism w/ worsening chest pain and shortness of breath. You had been previously diagnosed with an unprovoked pulmonary embolism in the emergency room on 06/09 and discharged home on Eliquis. You represented to the ED on 06/10 where a chest CTA reconfirmed the presence of PE and regular progression of disease. You were then admitted to the hospital for further evaluation of care. While you were in the hospital, you were placed on a heparin drip before being transitioned back to Eliquis. A echocardiogram was preformed on 06/11 that was without abnormalities. You additionally noted that you were experiencing Rt shoulder pain during your admission, an Xray on 06/11 revealed no fractures, dislocations, or erosive changes. You may purchase lidocaine patches to place on your shoulder following discharge to help ease pain. Two medications will be sent to your pharmacy. It's important that you follow up with [facility] within one week of discharge for continuation of your medication. Discharge Instructions: -Please Contact [facility] to set up an appointment within one week of your hospital discharge -You should continue to take the Eliquis previously prescribed to you. You should take 10mg by mouth TWICE daily for the first SEVEN days and then transition to 5mg by mouth TWICE daily until a total treatment course of 90 days is completed - continuation of this treatment is reliant on PCP followup -AVOID NSAIDS while on Eliquis as it can increase your risk of bleeding: this includes medications such as Motrin/Ibuprofen, Aleve, and Aspirin -Lidocaine Patches 4% can be purchased at your local pharmacy to be placed on your R shoulder to ease pain -Tramadol was sent to your pharmacy to help with your shoulder pain. This medication can cause constipation, so its important to to stay hydrated. Medications: Your medication list has been reviewed and reconciled upon discharge to ensure accuracy and continuity of care. An updated list of all your medications is included with your hospital discharge paperwork. Please review this list clos helder, and make note of any changes. We sent a new medication called Tramadol to your pharmacy. Take two times a day for the next 3 days. Start this tonight. This is a medication to help with your pain . Take your medications as instructed; do not skip a dose of your medicines. Make sure all of your doctors know every medicine you are taking (including nksj-abv-mgpvmus medicines, vitamins, and supplements). Call your primary care provider before taking any new medicines (including over- the-counter medicines, vitamins, and supplements), because some of these may interact with your current medications, or may make your symptoms worse. Tell your primary care provider if you cannot afford your medications. Activity: You can do normal everyday activities as your body allows. Take rest breaks if you feel tired. Do not overexert. Stop activity if you have pain, shortness of breath or feel dizzy. Follow-up appointments: Make an appointment with your primary care physician within one week of discharge. A copy of this summary will be sent to them. Every time you see your primary care physician, or any other doctor, bring your medication list, and a list of questions. CONTACT YOUR PRIMARY CARE PROVIDER if you experience any of the following: Shortness of breath or difficulty breathing Fevers or chills Feeling tired with normal activity or experiencing dizziness or fainting Difficulty following your treatment plan, or difficulty taking medications CALL 911 OR GO TO THE EMERGENCY DEPARTMENT if you experience any of the following: Severe abdominal pain or nausea/vomiting Severe chest pain, or chest pain that radiates (moves) to your jaw or arm Sudden, severe shortness of breath or difficulty breathing Thank you for allowing us to participate in your care. Total Time Total Time Spent Total Time Spent (In Minutes): Time spent day of discharge 50 minutes including direct patient care, medication reconciliation, documentation, review of labs and images, and coordination of care. Coding Level of Care Code 38900 INP/OBS DISCH >30 MIN Diagnoses Pulmonary embolism I26.99 Acute cor pulmonale presence: without acute cor pulmonale Chronicity: acute Pulmonary embolism type: unspecified Chest pain R07.9 Chest pain type: unspecified Orthopnea R06.01 Shoulder pain M25.519"
[2025-06-11] MEDS ORDERED: REMOVE LIDODERM PATCH SCH (21:00)
[2025-06-12] MEDS ORDERED: LIDOCAINE 5% 1 PATCH TD SCH (05:00)
== END 2025-06-11 18:40 | disposition home or self-care (01) | DRG 176 ==
LOC: ED 22:28 → SUATTDRO 06-11 02:30 → 2N 06-11 02:30 → INTOOBSV 06-11 02:30 → 2N 06-11 03:49